=== PATIENT | female | born 1955 | race Caucasian/White ===

== ENCOUNTER 2016-09-22 19:04 | Observation (INO) | payer BC ==
[~2016-09-22] VITALS: Ht 170.2 cm; Wt 85.9 kg
[~2016-09-22 19:04] MED LIST: CALAN SR,COVER240 MG PO; CALCIUM500 MG PO; CYMBALTA30 MG PO; CYMBALTA60 MG PO; DESYREL 150 MG150 MG PO; LOVAZA1 GM PO; NEXIUM20 MG PO; NIASPAN,SLO-N1000 MG; NIASPAN500 MG PO; PREVACID30 MG PO; TRAZODONE HCL150 MG PO; VERAPAMIL ER240 MG PO; VITAMIN D1000 INTUN PO
[2016-09-22 19:44] LABS: HEMATOCRIT 39.5 % (36.0-46.0); MCHC 34.4 G/DL (30.0-36.0); MEAN PLAT.VOLUME 8.5 uM^3 (9.5-12.4); PLATELET COUNT 371 K/uL (156-360); RBC DIS.WIDTH-CV 14.4 % (11.8-14.6); RBC DIS.WIDTH-SD 46.2 % (39-53); RED BLOOD COUNT 4.39 M/uL (3.80-5.20); WHITE BLOOD COUNT 6.1 K/uL (4.1-10.2)
[2016-09-22 19:54] LABS: CHLORIDE 96 mEq/L (99-109); POTASSIUM 3.6 mEq/L (3.7-5.4); SODIUM 138 mEq/L (136-147)
[2016-09-22 19:56] LABS: GLUCOSE 143 mg/dL (70-99)
[2016-09-22 19:57] LABS: ANION GAP 26 MEQ/L (2-14)
[2016-09-22 19:58] LABS: TOTAL BILIRUBIN 0.9 mg/dL (0.0-1.0)
[2016-09-22 19:59] LABS: SERUM ETHYL ALCOHOL 216 mg/dL
[2016-09-22 20:00] LABS: ALKALINE PHOSPHATASE 66 IU/L (3-129); GFR ESTIMATE (CALCULATED) > 59 mL/min/
[2016-09-22 20:01] LABS: UREA NITROGEN (BUN) 9 mg/dL (9-23)
[2016-09-22 20:33] LABS: PROTHROMBIN TIME 9.9 (9.2-11.2); PTT 27.6 (25-32)
[2016-09-22 22:38] LABS: ADD MIUA? YES; BILIRUBIN NEGATIVE; BLOOD NEGATIVE; COLOR DK YELLOW ((YELLOW)); GLUCOSE (STRIP) NEGATIVE; KETONES >=80; LEUKOCYTES NEGATIVE; NITRITE NEGATIVE; PROTEIN (STRIP) 100; SPECIFIC GRAVITY 1.028 (1.000-1.030)
[2016-09-22 22:51] LABS: AMPHETAMINE NEGATIVE (500 ng/mL); BARBITURATES NEGATIVE (200 ng/mL); BENZODIAZEPINES NEGATIVE (150 ng/mL); COCAINE NEGATIVE (150 ng/mL); INTERNAL CONTROLS VALID? YES; METHADONE NEGATIVE (200 ng/mL); METHAMPHETAMINE NEGATIVE (500 ng/mL); OPIATES (MORPHINE) NEGATIVE (100 ng/mL); OXYCODONE NEGATIVE (100 ng/mL); PHENCYCLIDINE NEGATIVE (25 ng/mL); PROPOXYPHENE NEGATIVE (300 ng/mL); THC CANNABINOIDS NEGATIVE (50 ng/mL); TRICYCLIC ANTIDEPRESSANTS NEGATIVE (300 ng/mL)
[2016-09-22 23:10] LABS: BACTERIA 1+ /HPF; CASTS PRESENT /LPF; CRYSTALS NONE SEEN; EPITHELIAL CELLS 1+ /HPF; FINE GRANULAR CASTS 0-5 /LPF; HYALINE CASTS 0-5 /LPF; MUCUS NONE SEEN /LPF; RED BLOOD CELLS NONE SEEN /HPF (0-5); UCUL ADDED? NO; WHITE BLOOD CELLS NONE SEEN /HPF (0-5)
[2016-09-23 02:09] LABS: TROP-I INTERPRETATION NEGATIVE; TROPONIN-I 0.05 ng/mL (0.0-0.30)
[2016-09-23 05:08] VITALS: BP 145/80
[2016-09-23 05:36] LABS: POINT-OF-CARE METER ID UU13113831
[2016-09-23 05:41] LABS: CARBON DIOXIDE (BICARBONATE) 18.9 MEQ/L (20-31)
[2016-09-23 06:01] LABS: TROP-I INTERPRETATION NEGATIVE; TROPONIN-I 0.07 ng/mL (0.0-0.30)
[2016-09-23 06:17] LABS: HEMATOCRIT 34.1 % (36.0-46.0); MCH 31.5 PG (29.0-34.0); MCV 92.7 FL (83-99); MEAN PLAT.VOLUME 9.4 uM^3 (9.5-12.4); PLATELET COUNT 298 K/uL (156-360); RBC DIS.WIDTH-CV 14.6 % (11.8-14.6); RBC DIS.WIDTH-SD 49.3 % (39-53); RED BLOOD COUNT 3.68 M/uL (3.80-5.20); WHITE BLOOD COUNT 7.3 K/uL (4.1-10.2)
[2016-09-23 06:25] LABS: ANION GAP 19 MEQ/L (2-14); CHLORIDE 98 MEQ/L (99-109); GFR ESTIMATE (CALCULATED) > 59 mL/min/; GLUCOSE 129 mg/dL (70-99); LIPASE 18 U/L (1.0-51.0); MAGNESIUM 1.4 mg/dl (1.3-2.7); POTASSIUM 3.6 MEQ/L (3.7-5.4); SAMPLE HEMOLYSIS CHECK 0; SAMPLE ICTERIC CHECK 0; SAMPLE LIPEMIA CHECK 0; SERUM ETHYL ALCOHOL 11 mg/dL; SODIUM 135 MEQ/L (136-147); UREA NITROGEN (BUN) 7 mg/dL (9-23)
[2016-09-23 08:24] VITALS: BP 158/88
[2016-09-23 11:49] VITALS: BP 143/86
[2016-09-23 12:17] LABS: HEMATOCRIT 31.7 % (36.0-46.0); MCV 91.6 FL (83-99)
[2016-09-23 12:19] LABS: POINT-OF-CARE METER ID UU13113831
[2016-09-23 12:38] LABS: TROP-I INTERPRETATION NEGATIVE; TROPONIN-I 0.07 ng/mL (0.0-0.30)
[2016-09-23 15:41] VITALS: BP 163/95
[2016-09-23 17:59] LABS: POINT-OF-CARE METER ID UU13113700
[2016-09-23 20:00] VITALS: BP 175/100
[2016-09-23 23:40] LABS: POINT-OF-CARE METER ID UU13113700
[2016-09-24 01:51] VITALS: BP 170/90
[2016-09-24 05:30] VITALS: BP 175/90
[2016-09-24 07:45] VITALS: BP 159/96
[2016-09-24 09:07] LABS: HEMATOCRIT 35.7 % (36.0-46.0); MCH 31.7 PG (29.0-34.0); MCHC 34.2 G/DL (30.0-36.0); MCV 92.7 FL (83-99); RBC DIS.WIDTH-CV 14.7 % (11.8-14.6); RED BLOOD COUNT 3.85 M/uL (3.80-5.20); WHITE BLOOD COUNT 6.7 K/uL (4.1-10.2)
[2016-09-24 09:31] LABS: ALKALINE PHOSPHATASE 46 IU/L (3-129); ANION GAP 12 MEQ/L (2-14); CHLORIDE 97 MEQ/L (99-109); DIRECT BILIRUBIN 0.3 mg/dL (0.0-0.3); GFR ESTIMATE (CALCULATED) > 59 mL/min/; SAMPLE HEMOLYSIS CHECK 1; SAMPLE ICTERIC CHECK 0; SAMPLE LIPEMIA CHECK 0; SODIUM 130 MEQ/L (136-147); TOTAL BILIRUBIN 1.3 MG/DL (0.0-1.0); UREA NITROGEN (BUN) 3 mg/dL (9-23)
[2016-09-24 09:38] LABS: GLUCOSE 229 mg/dL (70-99)
[2016-09-24 10:27] LABS: EOSINOPHIL (%) 0.6 % (0-5); HEMATOLOGY COMMENT 1 SMEAR COMPATIBLE; IMMATURE GRANULOCYTE (%) 0.6 % (0.0-0.7); LYMPHOCYTE COUNT 1.2 K/uL (1.0-2.8); MEAN PLAT.VOLUME 10.2 uM^3 (9.5-12.4); MONOCYTE (%) 6.1 % (3-12); MONOCYTE COUNT 0.4 K/uL (0-0.8); NEUTROPHIL (%) 74.7 % (45-76); PLAT.SUFFICIENCY ADEQUATE; PLATELET COUNT 186 K/uL (156-360); USER ID TLW
[2016-09-24] MEDS ORDERED: CYMBALTA60 MG PO (11:28)
[2016-09-24] MEDS ORDERED: NIASPAN,SLO-N1000 MG PO (11:28)
[2016-09-24] MEDS ORDERED: LOVAZA1 GM PO (11:29)
[2016-09-24] MEDS ORDERED: PREVACID30 MG PO (11:29)
[2016-09-24] MEDS ORDERED: TRAZODONE HCL150 MG PO (11:30)
[2016-09-24] MEDS ORDERED: OXYBUTYNIN CHLO15 MG PO (11:30)
[2016-09-24 11:46] VITALS: BP 141/98
[2016-09-24 12:28] LABS: POINT-OF-CARE METER ID UU13113831
[2016-09-24] MEDS ORDERED: VIGAMOX 0.60 DROP/3 RIGHT EYE (15:19)
[2016-09-24] MEDS ORDERED: ATIVAN0.5 MG PO (15:21)
== END 2016-09-24 16:22 | disposition home or self-care (01) ==
LOC: EME 19:04 → EDOF 09-23 02:44 → 5WEST 09-23 02:44 → EDOF 09-23 04:48 → 5WEST 09-23 04:52
PROVIDERS: Emergency Medicine; Hospitalist; Internal Medicine; Physician Assistant Medical
DX: F10.239 Alcohol dependence with withdrawal, unspecified (principal); F10.229 Alcohol dependence with intoxication, unspecified; E87.2 Acidosis; R73.9 Hyperglycemia, unspecified; R74.8 Abnormal levels of other serum enzymes; R07.9 Chest pain, unspecified; K92.0 Hematemesis; E87.6 Hypokalemia; E86.0 Dehydration; R25.1 Tremor, unspecified; H10.9 Unspecified conjunctivitis; Z85.43 Personal history of malignant neoplasm of ovary; Z87.891 Personal history of nicotine dependence; Z88.2 Allergy status to sulfonamides; Z88.5 Allergy status to narcotic agent; Z88.8 Allergy status to other drugs, medicaments and biological substances; Y90.7 Blood alcohol level of 200-239 mg/100 ml; Z87.11 Personal history of peptic ulcer disease; Z87.19 Personal history of other diseases of the digestive system
CPT/HCPCS: 71010; 80048; 80053; 80076; 81003; 82140; 82803; 82948; 83605; 83690; 83735; 84100; 84484; 85014; 85018; 85025; 85027; 85610; 85730; 90839; 93005; 99281; 99285; C9113; G0378; G0480; J1630; J1815; J2060; J2405; J3411; J3480; J7030